=== PATIENT | female | born 1995 | race African-American/Black ===

== ENCOUNTER 2016-08-10 19:22 | Emergency (ER) | payer OTHER ==
[~2016-08-10] VITALS: Ht 154.9 cm; Wt 54.4 kg
[2016-08-10 19:23] VITALS: BP 106/61
[2016-08-10] MEDS ORDERED: IBUPROFEN 600600 M1 PO (20:45)
== END 2016-08-10 21:01 | disposition home or self-care (01) ==
LOC: ER 19:22
DX: S50.01XA Contusion of right elbow, initial encounter (principal); V49.9XXA Car occupant (driver) (passenger) injured in unspecified traffic accident, initial encounter; Y93.I9 Activity, other involving external motion; Y92.488 Other paved roadways as the place of occurrence of the external cause; Y99.9 Unspecified external cause status

== ENCOUNTER 2017-09-29 10:26 | Emergency (ER) | payer OTHER ==
[~2017-09-29] VITALS: Ht 157.5 cm; Wt 60.8 kg
[~2017-09-29 10:26] MED LIST: IBUPROFEN 600600 M1 PO
[2017-09-29 10:59] LABS: URINE BILIRUBIN NEGATIVE (Negative); URINE BLOOD NEGATIVE (Negative); URINE CLARITY CLEAR; URINE COLOR YELLOW; URINE GLUCOSE-RANDOM* NEGATIVE (Negative); URINE KETONES NEGATIVE (Negative); URINE LEUKOCYTES-REFLEX NEGATIVE (Negative); URINE NITRITE-REFLEX NEGATIVE (Negative); URINE PROTEIN (DIPSTICK) NEGATIVE (Negative); URINE UROBILINOGEN 0.2 E.U./dl (0.2-1.0)
[2017-09-29 12:40] LABS: ABSOLUTE NEUTROPHILS 1.3 thou/uL (1.4-8.2); BASOPHILS 0.8 % (0.0-2.0); EOSINOPHILS 0.9 % (0.0-3.0); HEMATOCRIT 37.5 % (37.0-47.0); HEMOGLOBIN 12.6 gm/dL (12.0-15.0); LYMPHOCYTES 57.1 % (24.0-44.0); MCH 28.2 pg (26.0-34.0); MCHC 33.6 g/dL (28.0-37.0); MONOCYTES 11.5 % (1.0-8.0); PLATELET COUNT 214 thou/uL (150-400); POLYS 29.7 % (36.0-66.0); RBC 4.46 mil/uL (4.20-5.00); RDW 13.9 % (10.5-14.5); WBC 4.3 thou/uL (4.0-11.0)
[2017-09-29 12:55] LABS: CALCIUM 9.1 mg/dL (8.5-10.1); CREATININE 0.7 mg/dL (0.6-1.0); POTASSIUM 3.5 mmol/L (3.5-5.1)
[2017-09-29 13:02] LABS: ALBUMIN 3.7 g/dL (3.4-5.0); TOTAL BILIRUBIN 0.4 mg/dL (<0.1-1.0); TOTAL PROTEIN 7.5 g/dL (6.4-8.2)
[2017-09-29 13:51] VITALS: BP 122/74
[2017-10-01 14:13] LABS: NEISSERIA GONORRHEA-PCR Negative (Negative)
== END 2017-09-29 13:52 | disposition home or self-care (01) ==
LOC: ER 10:26
PROVIDERS: Emergency Medicine; Nurse Practitioner Family
DX: O26.891 Other specified pregnancy related conditions, first trimester (principal); R10.30 Lower abdominal pain, unspecified; Z3A.01 Less than 8 weeks gestation of pregnancy